=== PATIENT | male | born 1965 | race Two or more races ===

== ENCOUNTER 2019-01-04 16:28 | Inpatient (IN) | payer MEDICAID ==
[~2019-01-04] VITALS: Ht 190.5 cm; Wt 79.4 kg
[2019-01-04 16:33] VITALS: BP 103/55
--- NOTE | 2019-01-04 16:33 | NUR ---
ED Nurse Note: Pt presents to ED with flu like symptoms and N/V with diarrhea x 3 days. Pt states he has not been able to eat x 3 days and is very hungry at this time. Noted one skin wound on left hand. Pt states its an infection. Pt is AAO x4, ambulatory with unlabored breathing. Skin is pale and hot to touch.
--- NOTE | 2019-01-04 16:40 | NUR ---
ED Nurse Note: Dr Raya at the bed side.
[2019-01-04] MEDS ORDERED: Ipratropium 0.02% Inh Soln 2.5ml UD HHN ONE (16:45)
[2019-01-04] MEDS ORDERED: Albuterol ud Inhalation HHN ONE (16:45)
--- NOTE | 2019-01-04 17:00 | NUR ---
ED Nurse Note: Blood and flu swab collected and sent.
--- NOTE | 2019-01-04 17:18 | NUR ---
ED Nurse Note: Called RT for breathing treatment.
--- NOTE | 2019-01-04 17:19 | Emergency Room Report ---
History of Present Illness General Chief Complaint: Flu Like Symptoms Source: Patient Present Illness HPI Patient presents with several days of nausea vomiting and diarrhea. He's been unable to keep down oral fluids for several days. He's complaining about cough wheezing and chest pain also. He says that there is yellow phlegm but not very much. He is a smoker and also drinks alcohol but but denies doing any drugs. He says the diarrhea is watery but not any blood. He denies vomiting any coffee grounds. He feels hungry at this time. No chest pain, palpitations, dysuria, abdominal pain, depression, visual changes , headache. Allergies: Coded Allergies: PENICILLINS (Verified Allergy, Unknown, 01/04/19) Patient History Past Medical History: see triage record Social History: Reports: smoking, alcohol use; Denies: drug use Social History Narrative from streets Reviewed Nursing Documentation: PMH: Agreed; PSxH: Agreed Nursing Documentation-PM Past Medical History: No Stated History Review of Systems All Other Systems: negative except mentioned in HPI Physical Exam Vital Signs Date Time Temp Pulse Resp B/P (MAP) Pulse Ox O2 Delivery O2 Flow Rate FiO2 01/04/19 16:23 100.8 125 19 135/63 94 Room Air Sp02 EP Interpretation: reviewed, abnormal - Interpreted as low by me General Appearance: other - dishevelled Head: normocephalic Eyes: bilateral eye normal inspection, bilateral eye PERRL, bilateral eye EOMI ENT: dry mucus membranes Neck: supple Respiratory: chest non-tender, wheezing, expiration Cardiovascular #1: no edema, tachycardia Cardiovascular #2: 2+ radial (R) Gastrointestinal: normal inspection, normal bowel sounds, non tender, no mass, non-distended, scaphoid Genitourinary: no CVA tenderness Musculoskeletal: back normal, gait/station normal, normal range of motion Neurologic: alert, oriented x3, grossly normal Psychiatric: mood/affect normal Skin: normal inspection, warm/dry Medical Decision Making Diagnostic Impression: Primary Impression: Acute renal failure Qualified Codes: N17.9 - Acute kidney failure, unspecified Additional Impressions: Nausea vomiting and diarrhea COPD exacerbation ER Course Patient presents with inability to eat and vomiting and diarrhea for 3 days. I differential includes gastroenteritis, colitis, other infectious enteritis, COPD exacerbation amongst others. Patient will be evaluated with EKG, chest x- ray and labs. His abdomen is benign at this time and CT abdomen is not indicated. Patient appears clinically dehydrated and will receive IV hydration. Also he is breathing treatments. EKG without injury. Chest x-ray with COPD and fracture ribs on the right. These are not acute. Labs with elevated white count. Also there is evidence of acute renal failure. The patient hasn't produced urine. Lactate normal. Patient improved with breathing treatments. He's receiving IV hydration. Consideration for antibiotics however patient appears to have gastroenteritis. The patient needs hospitalization to observe whether his renal failure is improving or not. Admit medical floor Dr. Fermin. The patient has not provided urine in the emergency department. Laboratory Tests Test 01/04/19 17:00 White Blood Count 13.3 K/UL (4.8-10.8) H Red Blood Count 4.53 M/UL (4.70-6.10) L Hemoglobin 13.7 G/DL (14.2-18.0) L Hematocrit 41.0 % (42.0-52.0) L Mean Corpuscular Volume 90 FL (80-99) Mean Corpuscular Hemoglobin 30.3 PG (27.0-31.0) Mean Corpuscular Hemoglobin Concent 33.5 G/DL (32.0-36.0) Red Cell Distribution Width 12.1 % (11.6-14.8) Platelet Count 143 K/UL (150-450) L Mean Platelet Volume 8.3 FL (6.5-10.1) Neutrophils (%) (Auto) 72.8 % (45.0-75.0) Lymphocytes (%) (Auto) 9.3 % (20.0-45.0) L Monocytes (%) (Auto) 16.5 % (1.0-10.0) H Eosinophils (%) (Auto) 0.0 % (0.0-3.0) Basophils (%) (Auto) 1.4 % (0.0-2.0) Prothrombin Time 10.4 SEC (9.30-11.50) Prothrombin Time INR 1.0 (0.9-1.1) PTT 38 SEC (23-33) H Sodium Level 134 MMOL/L (136-145) L Potassium Level 5.3 MMOL/L (3.5-5.1) H Chloride Level 97 MMOL/L (98-107) L Carbon Dioxide Level 25 MMOL/L (21-32) Anion Gap 12 mmol/L (5-15) Blood Urea Nitrogen 33 mg/dL (7-18) H Creatinine 2.1 MG/DL (0.55-1.30) H Estimate Glomerular Filtration Rate 33.5 mL/min (>60) Glucose Level 107 MG/DL (74-106) H Lactic Acid Level 1.00 mmol/L (0.4-2.0) Calcium Level 9.1 MG/DL (8.5-10.1) Magnesium Level 1.7 MG/DL (1.8-2.4) L Total Bilirubin 0.5 MG/DL (0.2-1.0) Aspartate Amino Transferase (AST) 38 U/L (15-37) H Alanine Aminotransferase (ALT) 39 U/L (12-78) Alkaline Phosphatase 103 U/L (46-116) Total Creatine Kinase 171 U/L (26-308) Troponin I 0.000 ng/mL (0.000-0.056) Pro-B-Type Natriuretic Peptide 410 pg/mL (0-125) H Total Protein 8.2 G/DL (6.4-8.2) Albumin 3.6 G/DL (3.4-5.0) Globulin 4.6 g/dL Albumin/Globulin Ratio 0.8 (1.0-2.7) L Lipase 108 U/L (73-393) Serum Alcohol < 3 mg/dL Microbiology Date/Time Source Procedure Growth Status 01/04/19 16:58 Nasal Nares Influenza Types A,B Antigen (MITALI) - Final Complete EKG Diagnostic Results Rate: normal Rhythm: NSR ST Segments: no acute changes Rhythm Strip Diag. Results EP Interpretation: yes Rhythm: NSR, no PVC's, no ectopy Chest X-Ray Diagnostic Results Chest X-Ray Diagnostic Results : Chest X-Ray Ordered: Yes # of Views/Limited/Complete: 1 View Indication: Other EP Interpretation: Yes Interpretation: no consolidation, no effusion, no pneumothorax, other - COPD and old rib fractures Impression: Other Electronically Signed by: Electronically signed by Luis Raya MD Last Vital Signs Date Time Temp Pulse Resp B/P (MAP) Pulse Ox O2 Delivery O2 Flow Rate FiO2 01/05/19 00:00 98.1 76 18 99/64 (76) 96 01/04/19 22:14 Room Air 01/04/19 20:00 21 Status: improved Disposition: ADMITTED INPATIENT Condition: Serious Luis Raya MD Jan 04, 2019 17:19
[2019-01-04 17:30] LABS: BASOPHILS % (AUTO) 1.4 % (0.0-2.0); HEMOGLOBIN 13.7 G/DL (14.2-18.0); LYMPHOCYTES % (AUTO) 9.3 % (20.0-45.0); MEAN CORPUSCULAR VOLUME 90 FL (80-99); MONOCYTES % (AUTO) 16.5 % (1.0-10.0); NEUTROPHILS % (AUTO) 72.8 % (45.0-75.0); PLATELET COUNT 143 K/UL (150-450); RED BLOOD COUNT 4.53 M/UL (4.70-6.10); RED CELL DISTRIBUTION WIDTH 12.1 % (11.6-14.8); WHITE BLOOD COUNT 13.3 K/UL (4.8-10.8)
[2019-01-04 17:31] LABS: ANION GAP 12 mmol/L (5-15); BLOOD UREA NITROGEN 33 mg/dL (7-18); CALCIUM 9.1 MG/DL (8.5-10.1); CARBON DIOXIDE 25 MMOL/L (21-32); CHLORIDE 97 MMOL/L (98-107); CREATININE 2.1 MG/DL (0.55-1.30); POTASSIUM 5.3 MMOL/L (3.5-5.1); SODIUM 134 MMOL/L (136-145)
--- NOTE | 2019-01-04 17:38 | NUR ---
ED Nurse Note: Pt still unable to provide urine sample at this time. Dr Elver cook for pt to eat food and drinks.
[2019-01-04 17:41] LABS: ALANINE AMINOTRANSFERASE 39 U/L (12-78); ALBUMIN 3.6 G/DL (3.4-5.0); ALBUMIN/GLOBULIN RATIO 0.8 (1.0-2.7); ALKALINE PHOSPHATASE 103 U/L (46-116); ASPARTATE AMINO TRANSFERASE 38 U/L (15-37); BILIRUBIN,TOTAL 0.5 MG/DL (0.2-1.0); CREATINE KINASE 171 U/L (26-308)
--- NOTE | 2019-01-04 19:10 | NUR ---
HAND-OFF: Report given to Tyson Dickens RN.
--- NOTE | 2019-01-04 20:00 | NUR ---
TRANSFER TO FLOOR: Patient transferred to Med Surg 321-1 as ordered, per Fermin MD. Report given to HALLEY Whitehead. Belongings list completed with receiving RN.
--- NOTE | 2019-01-04 20:05 | NUR ---
NURSE NOTES: Received report from HALLEY Don in ER for patient at 1950pm. Pt arrived on unit at 1999 with belongings, keeping cox $100 at bedside, pt alert and oriented, able to make need known, call light within reach, requesting food but I informed him that I would have to wait until the orders are in and he verbalized understanding. Bed in lowest position, Vitals 98.7 T, 85/49, 85HR, 92% room air, 18resp. Pt with no signs of pain or signs of distress. Pt admitted with open wound on left hand and he states he has an infection and takes bactrim, will take a picture and upload it.
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
[2019-01-05] VITALS (7 sets, daily range): BP systolic 90–133; BP diastolic 51–76
[2019-01-05] MEDS ORDERED: BACTRIM DS TAB1 EAC1 ORAL (00:16)
[2019-01-05] MEDS ORDERED: IBUPROFEN600 MG ORAL (00:16)
[2019-01-05] MEDS ORDERED: PROVENTIL HFA6.7 G1 IH (00:16)
--- NOTE | 2019-01-05 01:54 | NUR ---
NURSE NOTES: Pulled tylenol from the pyxis to give to pt for pain but he says it makes him sick. I will put it back in pyxis. he is requesting something for nausea, I will give zofran.
--- NOTE | 2019-01-05 05:00 | NUR ---
NURSE NOTES: I asked the patient multiple times about assisting him to wash up and get cleaned but he states he doesn't want to do it now and will do it later. Encouraged him upon admission that I would help him get cleaned at that time he acknowledged that he wanted to.
[2019-01-05 06:34] LABS: APPEARANCE,URINE CLEAR; BILIRUBIN, URINE NEGATIVE (NEGATIVE); COLOR,URINE PALE YELLOW; GLUCOSE, URINE (UA) NEGATIVE (NEGATIVE); KETONES,URINE NEGATIVE (NEGATIVE); LEUKOCYTE ESTERASE ,URINE NEGATIVE (NEGATIVE); NITRITE,URINE NEGATIVE (NEGATIVE); PH,URINE 5 (4.5-8.0); PROTEIN,URINE 1+ (NEGATIVE); UROBILINOGEN,URINE NORMAL MG/DL (0.0-1.0)
--- NOTE | 2019-01-05 06:39 | NUR ---
NURSE NOTES: Hanley catheter 16F in place and urine draining, total output this morning 1600ml.
[2019-01-05 06:53] LABS: BASOPHILS % (AUTO) 1.3 % (0.0-2.0); HEMATOCRIT 34.5 % (42.0-52.0); HEMOGLOBIN 11.6 G/DL (14.2-18.0); LYMPHOCYTES % (AUTO) 11.7 % (20.0-45.0); MEAN CORPUSCULAR VOLUME 90 FL (80-99); MONOCYTES % (AUTO) 13.8 % (1.0-10.0); NEUTROPHILS % (AUTO) 73.2 % (45.0-75.0); PLATELET COUNT 109 K/UL (150-450); RED BLOOD COUNT 3.83 M/UL (4.70-6.10); RED CELL DISTRIBUTION WIDTH 11.7 % (11.6-14.8); WHITE BLOOD COUNT 8.6 K/UL (4.8-10.8)
--- NOTE | 2019-01-05 07:09 | NUR ---
NURSE NOTES: Micro called stating pt urine positive for amphetamines
[2019-01-05 07:20] LABS: ANION GAP 8 mmol/L (5-15); BLOOD UREA NITROGEN 28 mg/dL (7-18); CALCIUM 8.1 MG/DL (8.5-10.1); CARBON DIOXIDE 24 MMOL/L (21-32); CHLORIDE 100 MMOL/L (98-107); CREATININE 1.6 MG/DL (0.55-1.30); SODIUM 132 MMOL/L (136-145)
--- NOTE | 2019-01-05 07:42 | NUR ---
HAND-OFF: Report given to HALLEY Powell.
--- NOTE | 2019-01-05 10:01 | NUR ---
CASE MANAGEMENT:REVIEW 53 YR OLD MALE BIBA CC; FLU LIKE SYMPTOMS WITH NAUSEA AND DIARRHEA; GENERALIZED PAIN SI: ACUTE RENAL FAILURE. COPD EXACERBATION N/V/D 100.8 125 19 135/63 94% ON RA WBC+13.3 IS: DUONEB HHN IBUPROFEN PO 1L NS BOLUS IV ZOFRAN CHEST XRAY : TO TELEMETRY *INTERQUAL CRITERIA MET
--- NOTE | 2019-01-05 10:09 | Nephrology Progress Note ---
Assessment/Plan Assessment/Plan A/P 1) BOBBY- due to volume depletion/prerenal. High urine OSM - Cr down to 1.6. Continue IVFs and DC benitez 2) Substance Abuse- meth 3) Sepsis- + Influ A and hand infection - Tamiflu/resp isolation + Bactrim - ID consulted 4) Dehydration- IVFs 5) N/V - per GI mgmt Subjective Date patient seen: Jan 05, 2019 Time patient seen: 10:06 ROS Limited/Unobtainable: No Constitutional: Reports: fever, weakness Endocrine: Reports: excessive sweating, intolerance to heat Allergies: Coded Allergies: PENICILLINS (Verified Allergy, Unknown, 01/04/19) All Systems: reviewed and negative except above Subjective Patient having fevers Objective Last 24 Hour Vital Signs Date Time Temp Pulse Resp B/P (MAP) Pulse Ox O2 Delivery O2 Flow Rate FiO2 01/05/19 08:00 102.5 100 16 121/76 (91) 94 01/05/19 04:00 99.9 91 18 113/65 (81) 95 01/05/19 00:00 98.1 76 18 99/64 (76) 96 01/04/19 22:14 Room Air 01/04/19 20:00 100.9 107 20 103/55 99 Room Air 21 01/04/19 17:38 92 20 99 Room Air 21 01/04/19 17:33 100.9 01/04/19 17:30 86 22 Room Air 21 01/04/19 17:30 21 01/04/19 17:30 86 22 97 Room Air 21 01/04/19 16:33 107 18 Room Air 01/04/19 16:33 100.8 107 18 103/55 94 Room Air 01/04/19 16:23 100.8 125 19 135/63 94 Room Air Intake and Output 01/04/19 01/05/19 19:00 07:00 Intake Total 1000 ml 1420 ml Output Total 1600 ml Balance 1000 ml -180 ml Intake Oral 1420 ml IV Total 1000 ml Output Urine Total 1600 ml # Bowel Movements 3 Laboratory Tests 01/04/19 17:00: White Blood Count 13.3H, Red Blood Count 4.53L, Hemoglobin 13.7L, Hematocrit 41.0L, Mean Corpuscular Volume 90, Mean Corpuscular Hemoglobin 30.3, Mean Corpuscular Hemoglobin Concent 33.5, Red Cell Distribution Width 12.1, Platelet Count 143L, Mean Platelet Volume 8.3, Neutrophils (%) (Auto) 72.8, Lymphocytes ( %) (Auto) 9.3L, Monocytes (%) (Auto) 16.5H, Eosinophils (%) (Auto) 0.0, Basophils (%) (Auto) 1.4, Prothrombin Time 10.4, Prothromb Time International Ratio 1.0, Activated Partial Thromboplast Time 38H, Sodium Level 134L, Potassium Level 5.3H, Chloride Level 97L, Carbon Dioxide Level 25, Anion Gap 12 , Blood Urea Nitrogen 33H, Creatinine 2.1H, Estimat Glomerular Filtration Rate 33.5, Glucose Level 107H, Lactic Acid Level 1.00, Calcium Level 9.1, Magnesium Level 1.7L, Total Bilirubin 0.5, Aspartate Amino Transf (AST/SGOT) 38H, Alanine Aminotransferase (ALT/SGPT) 39, Alkaline Phosphatase 103, Total Creatine Kinase 171, Troponin I 0.000, Pro-B-Type Natriuretic Peptide 410H, Total Protein 8.2, Albumin 3.6, Globulin 4.6, Albumin/Globulin Ratio 0.8L, Lipase 108, Serum Alcohol < 3 01/05/19 04:50: Urine Color Pale yellow, Urine Appearance Clear, Urine pH 5, Urine Specific [place] 1.015, Urine Protein 1+H, Urine Glucose (UA) Negative, Urine Ketones Negative, Urine Blood 5+H, Urine Nitrite Negative, Urine Bilirubin Negative, Urine Urobilinogen Normal, Urine Leukocyte Esterase Negative, Urine RBC 10-15H, Urine WBC 0-2, Urine Squamous Epithelial Cells Occasional, Urine Bacteria Occasional, Urine Osmolality 506H, Urine Random Sodium 95, Urine Creatinine 62.9 , Urine Opiates Screen Negative, Urine Barbiturates Screen Negative, Phencyclidine (PCP) Screen Negative, Urine Amphetamines Screen PositiveH, Urine Benzodiazepines Screen Negative, Urine Cocaine Screen Negative, Urine Marijuana (THC) Screen Negative 01/05/19 06:00: White Blood Count 8.6, Red Blood Count 3.83L, Hemoglobin 11.6L, Hematocrit 34.5L , Mean Corpuscular Volume 90, Mean Corpuscular Hemoglobin 30.2, Mean Corpuscular Hemoglobin Concent 33.6, Red Cell Distribution Width 11.7, Platelet Count 109L, Mean Platelet Volume 9.6, Neutrophils (%) (Auto) 73.2, Lymphocytes ( %) (Auto) 11.7L, Monocytes (%) (Auto) 13.8H, Eosinophils (%) (Auto) 0.0, Basophils (%) (Auto) 1.3, Sodium Level 132L, Potassium Level 5.0, Chloride Level 100, Carbon Dioxide Level 24, Anion Gap 8, Blood Urea Nitrogen 28H, Creatinine 1.6H, Estimat Glomerular Filtration Rate 45.8, Glucose Level 97, Calcium Level 8.1L, Phosphorus Level 2.1L Height (Feet): 6 Height (Inches): 3.00 Weight (Pounds): 175 General Appearance: alert, mild distress EENT: normal ENT inspection Neck: normal alignment, supple Cardiovascular: normal rate, regular rhythm Respiratory/Chest: lungs clear, normal breath sounds Abdomen: non tender, soft Edema: no edema noted Arm (L), no edema noted Arm (R), no edema noted Leg (L), no edema noted Leg (R), no edema noted Pedal (L), no edema noted Pedal (R), no edema noted Generalized Rafael Fermin MD Jan 05, 2019 10:09
--- NOTE | 2019-01-05 10:11 | Diagnostic Imaging Report ---
Indication: Dyspnea Comparison: None A single view chest radiograph was obtained. Findings: Cardiomediastinal appearance is within normal limits for age. The lungs are clear. Pulmonary vascularity is appropriate. The diaphragmatic contour is smooth and costophrenic angles are sharp. No pleural effusions are identified. The bones are unremarkable. Impression: No acute findings
[2019-01-05] MEDS: Oseltamivir 75mg cap ORAL SCH ×2 (11:06→17:19)
[2019-01-05] MEDS: Bactrim-DS 1 tab ORAL SCH ×2 (11:07→17:18)
--- NOTE | 2019-01-05 11:58 | GI Initial Consult Note ---
History of Present Illness General Date patient seen: Jan 05, 2019 Time patient seen: 11:54 Reason for Hospitalization: Flu Like Symptoms Referring physician: STOVALL Reason for Consultation: Nausea vomiting Present Illness HPI Patient presents with several days of nausea vomiting and diarrhea. He's been unable to keep down oral fluids for several days. He's complaining about cough wheezing and chest pain also. He says that there is yellow phlegm but not very much. He is a smoker and also drinks alcohol but but denies doing any drugs. He says the diarrhea is watery but not any blood. He denies vomiting any coffee grounds. He feels hungry at this time. No chest pain, palpitations, dysuria, abdominal pain, depression, visual changes , headache. GI consulted for nausea and vomiting. Patient seen, awake alert and oriented x4 has complaint of poor p.o. intake. Stated that he had days of nausea vomiting and diarrhea. Patient currently on droplet precautions for influenza. Laboratory values reviewed; patient presents with normocytic anemia, phosphorus of 2.1, sodium of 132. Urine toxicity positive for amphetamines. Patient denies any history of endoscopic or colonoscopy. Home Meds Reported Medications Trimethoprim/Sulfamethoxazole 160/800* (BACTRIM DS TABLET*) 1 Each Tablet, 1 TAB ORAL TWICE A DAY, TAB 01/05/19 Albuterol Sulfate (PROVENTIL HFA) 6.7 Gm Hfa.aer.ad, 6.7 GM IH 01/05/19 Ibuprofen* (MOTRIN*) 600 Mg Tablet, 600 MG ORAL Q8H PRN for For Pain, #30 TAB 0 Refills 01/05/19 Allergies: Coded Allergies: PENICILLINS (Verified Allergy, Unknown, 01/04/19) Patient History History Provided By: Patient, Medical Record PMH Narrative Past Medical History: see triage record Social History: Reports: smoking, alcohol use; Denies: drug use Social History Narrative from streets Reviewed Nursing Documentation: PMH: Agreed; PSxH: Agreed Nursing Documentation-PM Past Medical History: No Stated History Social History: Reports: drug use Review of Systems All Other Systems: negative except mentioned in HPI Physical Exam Vital Signs Date Time Temp Pulse Resp B/P (MAP) Pulse Ox O2 Delivery O2 Flow Rate FiO2 01/04/19 16:23 100.8 125 19 135/63 94 Room Air 2/24/19 17:30 21 Sp02 EP Interpretation: reviewed, normal Labs Laboratory Tests Test 01/04/19 17:00 01/05/19 04:50 01/05/19 06:00 White Blood Count 13.3 K/UL (4.8-10.8) H 8.6 K/UL (4.8-10.8) Red Blood Count 4.53 M/UL (4.70-6.10) L 3.83 M/UL (4.70-6.10) L Hemoglobin 13.7 G/DL (14.2-18.0) L 11.6 G/DL (14.2-18.0) L Hematocrit 41.0 % (42.0-52.0) L 34.5 % (42.0-52.0) L Mean Corpuscular Volume 90 FL (80-99) 90 FL (80-99) Mean Corpuscular Hemoglobin 30.3 PG (27.0-31.0) 30.2 PG (27.0-31.0) Mean Corpuscular Hemoglobin Concent 33.5 G/DL (32.0-36.0) 33.6 G/DL (32.0-36.0) Red Cell Distribution Width 12.1 % (11.6-14.8) 11.7 % (11.6-14.8) Platelet Count 143 K/UL (150-450) L 109 K/UL (150-450) L Mean Platelet Volume 8.3 FL (6.5-10.1) 9.6 FL (6.5-10.1) Neutrophils (%) (Auto) 72.8 % (45.0-75.0) 73.2 % (45.0-75.0) Lymphocytes (%) (Auto) 9.3 % (20.0-45.0) L 11.7 % (20.0-45.0) L Monocytes (%) (Auto) 16.5 % (1.0-10.0) H 13.8 % (1.0-10.0) H Eosinophils (%) (Auto) 0.0 % (0.0-3.0) 0.0 % (0.0-3.0) Basophils (%) (Auto) 1.4 % (0.0-2.0) 1.3 % (0.0-2.0) Prothrombin Time 10.4 SEC (9.30-11.50) Prothromb Time International Ratio 1.0 (0.9-1.1) Activated Partial Thromboplast Time 38 SEC (23-33) H Sodium Level 134 MMOL/L (136-145) L 132 MMOL/L (136-145) L Potassium Level 5.3 MMOL/L (3.5-5.1) H 5.0 MMOL/L (3.5-5.1) Chloride Level 97 MMOL/L (98-107) L 100 MMOL/L (98-107) Carbon Dioxide Level 25 MMOL/L (21-32) 24 MMOL/L (21-32) Anion Gap 12 mmol/L (5-15) 8 mmol/L (5-15) Blood Urea Nitrogen 33 mg/dL (7-18) H 28 mg/dL (7-18) H Creatinine 2.1 MG/DL (0.55-1.30) H 1.6 MG/DL (0.55-1.30) H Estimat Glomerular Filtration Rate 33.5 mL/min (>60) 45.8 mL/min (>60) Glucose Level 107 MG/DL (74-106) H 97 MG/DL (74-106) Lactic Acid Level 1.00 mmol/L (0.4-2.0) Calcium Level 9.1 MG/DL (8.5-10.1) 8.1 MG/DL (8.5-10.1) L Magnesium Level 1.7 MG/DL (1.8-2.4) L Total Bilirubin 0.5 MG/DL (0.2-1.0) Aspartate Amino Transf (AST/SGOT) 38 U/L (15-37) H Alanine Aminotransferase (ALT/SGPT) 39 U/L (12-78) Alkaline Phosphatase 103 U/L (46-116) Total Creatine Kinase 171 U/L (26-308) Troponin I 0.000 ng/mL (0.000-0.056) Pro-B-Type Natriuretic Peptide 410 pg/mL (0-125) H Total Protein 8.2 G/DL (6.4-8.2) Albumin 3.6 G/DL (3.4-5.0) Globulin 4.6 g/dL Albumin/Globulin Ratio 0.8 (1.0-2.7) L Lipase 108 U/L (73-393) Serum Alcohol < 3 mg/dL Urine Color Pale yellow Urine Appearance Clear Urine pH 5 (4.5-8.0) Urine Specific [place] 1.015 (1.005-1.035) Urine Protein 1+ (NEGATIVE) H Urine Glucose (UA) Negative (NEGATIVE) Urine Ketones Negative (NEGATIVE) Urine Blood 5+ (NEGATIVE) H Urine Nitrite Negative (NEGATIVE) Urine Bilirubin Negative (NEGATIVE) Urine Urobilinogen Normal MG/DL (0.0-1.0) Urine Leukocyte Esterase Negative (NEGATIVE) Urine RBC 10-15 /HPF (0 - 0) H Urine WBC 0-2 /HPF (0 - 0) Urine Squamous Epithelial Cells Occasional /LPF Urine Bacteria Occasional /HPF (NONE) Urine Osmolality 506 mOsm/kg (429-449) H Urine Random Sodium 95 mmol/L (20-110) Urine Creatinine 62.9 MG/DL (30.0-125.0) Urine Opiates Screen Negative (NEGATIVE) Urine Barbiturates Screen Negative (NEGATIVE) Phencyclidine (PCP) Screen Negative (NEGATIVE) Urine Amphetamines Screen Positive (NEGATIVE) H Urine Benzodiazepines Screen Negative (NEGATIVE) Urine Cocaine Screen Negative (NEGATIVE) Urine Marijuana (THC) Screen Negative (NEGATIVE) Phosphorus Level 2.1 MG/DL (2.5-4.9) L General Appearance: well appearing, no apparent distress, alert Head: normocephalic EENT: PERRL/EOMI, normal ENT inspection Neck: supple Respiratory: normal breath sounds, no respiratory distress Cardiovascular: normal rate Gastrointestinal: normal inspection, non tender, soft, normal bowel sounds, non -distended Rectal: deferred Genitourinary: deferred Musculoskeletal: normal inspection, back normal Neurologic: normal inspection, alert, oriented x3, responsive Psychiatric: normal inspection, judgement/insight normal, memory normal Skin: normal inspection, normal color, no rash, warm/dry, palpation normal, well hydrated Lymphatic: normal inspection, no adenopathy Current Medications Current Medications Medications (Trade) Dose Ordered Sig/Steve Route PRN Reason Start Time Stop Time Status Last Admin Dose Admin Acetaminophen (Tylenol) 650 mg Q4H PRN ORAL Mild Pain/Temp > 100.5 01/05/19 10:00 02/04/19 09:59 01/05/19 11:14 Dextrose (Dextrose 50%) 25 ml Q30M PRN IV Hypoglycemia 01/04/19 19:15 02/03/19 19:14 Dextrose (Dextrose 50%) 50 ml Q30M PRN IV Hypoglycemia 01/04/19 19:15 02/03/19 19:14 Diphenhydramine HCl (Benadryl) 25 mg Q6H PRN ORAL Itching/Pruritis 01/04/19 19:15 02/03/19 19:14 Famotidine (Pepcid) 40 mg DAILY ORAL 01/05/19 09:00 02/04/19 08:59 01/05/19 09:43 Ondansetron HCl (Zofran) 4 mg Q6H PRN IVP Nausea & Vomiting 01/04/19 19:15 02/03/19 19:14 01/05/19 09:51 Oseltamivir Phosphate (Tamiflu) 75 mg TWICE A DAY ORAL 01/05/19 10:00 01/10/19 09:59 01/05/19 11:06 Sodium Chloride 1,000 ml @ 100 mls/hr Q10H IV 01/04/19 20:00 02/03/19 19:59 01/05/19 08:40 Trimethoprim/ Sulfamethoxazole (Bactrim-DS) 1 tab TWICE A DAY ORAL 01/05/19 10:00 01/12/19 09:59 01/05/19 11:07 GI: Plan Problems: (1) Acute renal failure (2) Nausea vomiting and diarrhea (3) Dehydration (4) Anemia (5) Electrolyte imbalance Plan Urine toxicity positive for amphetamines Nasal culture positive for influenza A Antibiotics per ID Advance diet as tolerated Zofran as needed IV hydration plus electrolyte correction anemia work up OB stool r/o GI bleed monitor H&H, prn transfusions bowel regime ppi fu labs Outpatient GI procedures Discussed with Dr. Raines. Thank you for this patient referral, we will follow. The patient was seen and examined at bedside and all new and available data was reviewed in the patients chart. I agree with the above findings, impression and plan. (Patient seen earlier today. Signature stamp does not reflect patient encounter time.). - MD Carolyn Abebe,[facility] [employer] Jan 05, 2019 11:58
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
--- NOTE | 2019-01-05 15:00 | NUR ---
NURSE NOTES: transferred pt to , room 417-1, report given to RN Afnaheed. Patient in stable condition and VVSS, no complaint of pain of discomfort. Belongings list checked by transferring and receiving RNs, in front of patient. Pt changed his mind and wants to leave cox to be stored at the safe. Notified 4E CN.
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
--- NOTE | 2019-01-05 16:04 | NUR ---
*-* INSURANCE *--* ALL CLINICALS AND REVIEWS HAVE BEEN FAXED TO: [employer] ALO:MAHAD P:[phone] F:[phone]
--- NOTE | 2019-01-05 16:51 | Cardiology Report ---
APPROVED REPORT EKG Measurement Heart [id number] Normal sinus rhythm Normal ECG
--- NOTE | 2019-01-05 19:18 | NUR ---
HAND-OFF: Report given to HALLEY MCWILLIAMS.
--- NOTE | 2019-01-05 20:28 | NUR ---
NURSE NOTES: Received patient awake,alert,verbal,febrile,T-102.4.Tylenol 650 mg given as prn meds.Stool also collected and sent to laboratory for Stool OB and C-diff.
[2019-01-06 04:00] VITALS: BP 108/67
--- NOTE | 2019-01-06 07:30 | NUR ---
HAND-OFF: Report given to Tyrone Yang RN.
--- NOTE | 2019-01-06 07:32 | NUR ---
NURSE NOTES: Received patient from Melly RN, patient is resting in bed, no distress noted, bed is locked and in lowest position, call light within reach, will continue to monitor.
[2019-01-06 07:40] LABS: BASOPHILS % (AUTO) 0.5 % (0.0-2.0); EOSINOPHILS % (AUTO) 0.1 % (0.0-3.0); HEMATOCRIT 33.8 % (42.0-52.0); HEMOGLOBIN 11.4 G/DL (14.2-18.0); LYMPHOCYTES % (AUTO) 17.4 % (20.0-45.0); MEAN CORPUSCULAR VOLUME 91 FL (80-99); MONOCYTES % (AUTO) 10.6 % (1.0-10.0); NEUTROPHILS % (AUTO) 71.4 % (45.0-75.0); PLATELET COUNT 100 K/UL (150-450); RED BLOOD COUNT 3.72 M/UL (4.70-6.10); RED CELL DISTRIBUTION WIDTH 11.4 % (11.6-14.8); WHITE BLOOD COUNT 7.6 K/UL (4.8-10.8)
[2019-01-06 07:54] LABS: ANION GAP 8 mmol/L (5-15); BLOOD UREA NITROGEN 24 mg/dL (7-18); CALCIUM 8.2 MG/DL (8.5-10.1); CARBON DIOXIDE 25 MMOL/L (21-32); CHLORIDE 100 MMOL/L (98-107); CREATININE 1.5 MG/DL (0.55-1.30); FERRITIN 363 NG/ML (8-388); POTASSIUM 4.6 MMOL/L (3.5-5.1); SODIUM 133 MMOL/L (136-145)
[2019-01-06 07:55] LABS: % IRON SATURATION 7 % (15-50); IRON 14 ug/dL (50-175); TOTAL IRON BINDING CAPACITY 197 ug/dL (250-450)
[2019-01-06 08:00] VITALS: BP 104/67
[2019-01-06] MEDS: Oseltamivir 75mg cap ORAL SCH ×2 (08:40→18:16)
[2019-01-06] MEDS: Bactrim-DS 1 tab ORAL SCH ×2 (08:40→18:17)
--- NOTE | 2019-01-06 10:59 | Nephrology Progress Note ---
Assessment/Plan Assessment/Plan A/P 1) BOBBY- due to volume depletion/prerenal. High urine OSM - Improved. Cr 1.5. DC IVFs as patient now eating and drinking 2) Substance Abuse- meth 3) Sepsis- + Influ A and hand infection - Tamiflu/resp isolation + Bactrim - wound care per Gen surg 4) Dehydration- IVFs stopped. Resolved 5) N/V - per GI mgmt. resolved Plan is to DC patient once he has defervesced for 24 hrs Subjective Date patient seen: Jan 06, 2019 Time patient seen: 10:55 ROS Limited/Unobtainable: No Allergies: Coded Allergies: PENICILLINS (Verified Allergy, Unknown, 01/04/19) All Systems: reviewed and negative except above Subjective Patient fevers have resolved. N/V improved and BMs better formed Objective Last 24 Hour Vital Signs Date Time Temp Pulse Resp B/P (MAP) Pulse Ox O2 Delivery O2 Flow Rate FiO2 01/06/19 08:15 Room Air 01/06/19 08:00 98.2 81 20 104/67 (79) 99 01/06/19 04:00 99.3 81 18 108/67 (81) 98 01/05/19 21:00 Room Air 01/05/19 20:58 100.0 01/05/19 20:00 102.4 95 18 128/74 (92) 94 01/05/19 17:00 106/61 (76) 01/05/19 15:30 98.9 79 19 90/51 (64) 95 01/05/19 12:00 99.9 92 16 133/73 (93) 96 Intake and Output 01/05/19 01/06/19 19:00 07:00 Intake Total 760 ml 1200 ml Balance 760 ml 1200 ml Intake Oral 360 ml IV Total 400 ml 1200 ml Laboratory Tests 01/05/19 20:00: Stool Occult Blood Negative 01/06/19 05:10: White Blood Count 7.6, Red Blood Count 3.72L, Hemoglobin 11.4L, Hematocrit 33.8L , Mean Corpuscular Volume 91, Mean Corpuscular Hemoglobin 30.5, Mean Corpuscular Hemoglobin Concent 33.6, Red Cell Distribution Width 11.4L, Platelet Count 100L, Mean Platelet Volume 9.1, Neutrophils (%) (Auto) 71.4, Lymphocytes (%) (Auto) 17.4L, Monocytes (%) (Auto) 10.6H, Eosinophils (%) (Auto ) 0.1, Basophils (%) (Auto) 0.5, Reticulocyte Count [Pending], Prothrombin Time 10.4, Prothromb Time International Ratio 1.0, Activated Partial Thromboplast Time 38H, Sodium Level 133L, Potassium Level 4.6, Chloride Level 100, Carbon Dioxide Level 25, Anion Gap 8, Blood Urea Nitrogen 24H, Creatinine 1.5H, Estimat Glomerular Filtration Rate 49.3, Glucose Level 88, Calcium Level 8.2L, Iron Level 14L, Total Iron Binding Capacity 197L, Percent Iron Saturation 7L, Unsaturated Iron Binding 183, Ferritin 363, Carcinoembryonic Antigen [Pending], Vitamin B12 Level 425, Folate 10.8, Thyroid Stimulating Hormone (TSH) 5.405H, Free Thyroxine 1.12 Height (Feet): 6 Height (Inches): 3.00 Weight (Pounds): 175 General Appearance: no apparent distress, alert EENT: normal ENT inspection Neck: normal alignment, supple Cardiovascular: normal rate, regular rhythm Respiratory/Chest: lungs clear, normal breath sounds Abdomen: non tender, soft Edema: no edema noted Arm (L), no edema noted Arm (R), no edema noted Leg (L), no edema noted Leg (R), no edema noted Pedal (L), no edema noted Pedal (R), no edema noted Generalized Rafael Fermin MD Jan 06, 2019 10:59
[2019-01-06] MEDS ORDERED: Sodium Phosphate 30 MM in NS 275 ML IVPB ONE (11:00)
[2019-01-06] MEDS ORDERED: Iron Sucrose 100 MG in NS 55 ML IV ONE (11:00)
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
[2019-01-06 12:00] VITALS: BP 115/66
--- NOTE | 2019-01-06 13:44 | NUR ---
Social Service Note SW met with patient to assess for homelessness. Patient is alert, oriented and verbally responsive. Patient states he has been homeless for greater then 30 years. Patient cannot provide contributing factors as to what contributed to his homelessness or steps he has taken to obtain housing. Patient states he has a friend in which is assisting him in obtaining SSI benefits. Patient states he is able to return to his friend's house upon discharge. Patient declined to provided SW friend's contact information or an emergency contact. Patient states he doesn't utilize shelters and if not staying with friends he prefers to stay on the streets. Patient states he was diagnosed with Mental Health disorder, Bipolar. Patient is not being seen for mental services and is not on medication. Patient receptive to community resources for mental health support. Patient was unaware that he has an assigned medical provider. Patient's medical provider is [place] [phone], . JACQUELINE unable to arrange follow up appointment due to patient never receiving medical intervention in this clinic. Per Nabeel at the clinic patient can walk in Saturday- at 9am, 1040am, and 240pm to be established as a patient. Clinic is requesting medical records to be faxed to [phone] upon discharge. Clinic information and mental health follow up will be provided to patient upon discharge. Patient indicated requiring transportation to patient designated location upon discharge. Homeless patient discharge planning checklist and resources placed in patient's chart.
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
--- NOTE | 2019-01-06 14:20 | NUR ---
RADIOLOGY DEPT CHEST X-RAY DONE.-P.DYE
--- NOTE | 2019-01-06 14:31 | NUR ---
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 98.3 HR 65 RR 20 B/P 115/66 RA O2 SAT 99% PLT 100 BUN 24 CR 1.5 TSH 5.405 IS: K PHOS IV BACTRIM PO TAMIFLU PO MED/SURG STATUS
--- NOTE | 2019-01-06 15:47 | Diagnostic Imaging Report ---
Indication: Cough Technique: One view of the chest Comparison: 01/04/2019 Findings: Right hilar prominence is again demonstrated. No definite acute infiltrates, effusions, or congestion. The heart size is normal Impression: No acute process
[2019-01-06 16:00] VITALS: BP 99/66
--- NOTE | 2019-01-06 18:56 | General Progress Note ---
Assessment/Plan Assessment/Plan GI: Plan Problems: (1) Acute renal failure (2) Nausea vomiting and diarrhea - improved (3) Dehydration (4) Anemia (5) Electrolyte imbalance (6) Influenza Plans Antibiotics per ID Advance diet as tolerated Zofran as needed IV hydration plus electrolyte correction anemia work up OB stool r/o GI bleed monitor H&H, prn transfusions bowel regime ppi fu labs Outpatient screening colonoscopy Subjective Allergies: Coded Allergies: PENICILLINS (Verified Allergy, Unknown, 01/04/19) Subjective Feels much better no N/V tolerating PO Objective Last 24 Hour Vital Signs Date Time Temp Pulse Resp B/P (MAP) Pulse Ox O2 Delivery O2 Flow Rate FiO2 01/06/19 16:00 98.1 70 20 99/66 (77) 94 01/06/19 12:00 98.3 65 20 115/66 (82) 99 01/06/19 08:15 Room Air 01/06/19 08:00 98.2 81 20 104/67 (79) 99 01/06/19 04:00 99.3 81 18 108/67 (81) 98 01/05/19 21:00 Room Air 01/05/19 20:58 100.0 01/05/19 20:00 102.4 95 18 128/74 (92) 94 Intake and Output 01/05/19 01/06/19 18:59 06:59 Intake Total 660 ml 1200 ml Balance 660 ml 1200 ml Intake Oral 360 ml IV Total 300 ml 1200 ml Laboratory Tests 01/05/19 20:00: Stool Occult Blood Negative 01/06/19 05:10: White Blood Count 7.6, Red Blood Count 3.72L, Hemoglobin 11.4L, Hematocrit 33.8L , Mean Corpuscular Volume 91, Mean Corpuscular Hemoglobin 30.5, Mean Corpuscular Hemoglobin Concent 33.6, Red Cell Distribution Width 11.4L, Platelet Count 100L, Mean Platelet Volume 9.1, Neutrophils (%) (Auto) 71.4, Lymphocytes (%) (Auto) 17.4L, Monocytes (%) (Auto) 10.6H, Eosinophils (%) (Auto ) 0.1, Basophils (%) (Auto) 0.5, Reticulocyte Count 0.5, Prothrombin Time 10.4, Prothromb Time International Ratio 1.0, Activated Partial Thromboplast Time 38H , Sodium Level 133L, Potassium Level 4.6, Chloride Level 100, Carbon Dioxide Level 25, Anion Gap 8, Blood Urea Nitrogen 24H, Creatinine 1.5H, Estimat Glomerular Filtration Rate 49.3, Glucose Level 88, Calcium Level 8.2L, Iron Level 14L, Total Iron Binding Capacity 197L, Percent Iron Saturation 7L, Unsaturated Iron Binding 183, Ferritin 363, Carcinoembryonic Antigen [Pending], Vitamin B12 Level 425, Folate 10.8, Thyroid Stimulating Hormone (TSH) 5.405H, Free Thyroxine 1.12 Height (Feet): 6 Height (Inches): 3.00 Weight (Pounds): 175 Objective WDWN NCAT supple CTA RRR abd soft ND no edema nonfocal Mikey Scanlon MD Jan 06, 2019 18:56
--- NOTE | 2019-01-06 19:24 | NUR ---
HAND-OFF: Report given to Melly ROWLEY.
--- NOTE | 2019-01-06 19:49 | NUR ---
NURSE NOTES: Received patient awake,alert,verbal,resting in bed,comfortable.
[2019-01-06 20:00] VITALS: BP 103/61
[2019-01-06] MEDS ORDERED: Tubing IV Secondary IV ONE (22:25)
[2019-01-07 04:00] VITALS: BP 112/70
[2019-01-07 07:05] LABS: BASOPHILS % (AUTO) 0.8 % (0.0-2.0); HEMATOCRIT 34.8 % (42.0-52.0); HEMOGLOBIN 11.6 G/DL (14.2-18.0); LYMPHOCYTES % (AUTO) 31.7 % (20.0-45.0); MEAN CORPUSCULAR VOLUME 91 FL (80-99); MONOCYTES % (AUTO) 12.7 % (1.0-10.0); NEUTROPHILS % (AUTO) 53.8 % (45.0-75.0); PLATELET COUNT 112 K/UL (150-450); RED BLOOD COUNT 3.82 M/UL (4.70-6.10); RED CELL DISTRIBUTION WIDTH 11.6 % (11.6-14.8); WHITE BLOOD COUNT 4.2 K/UL (4.8-10.8)
[2019-01-07 07:21] LABS: ANION GAP 9 mmol/L (5-15); BLOOD UREA NITROGEN 25 mg/dL (7-18); CALCIUM 8.7 MG/DL (8.5-10.1); CARBON DIOXIDE 26 MMOL/L (21-32); CHLORIDE 103 MMOL/L (98-107); CREATININE 1.5 MG/DL (0.55-1.30); POTASSIUM 4.9 MMOL/L (3.5-5.1); SODIUM 138 MMOL/L (136-145)
--- NOTE | 2019-01-07 07:23 | NUR ---
HAND-OFF: Report given to Sergio Egan RN.
--- NOTE | 2019-01-07 07:24 | NUR ---
received report from HALLEY Farooq. patient in bed. alert, verbally responsive. no respiratory distress noted. no c/o pain at this time. RAC saline lock intact. bed in the lowest position. alarm on. call light within reach. will continue to monitor.
[2019-01-07 08:00] VITALS: BP 98/61
--- NOTE | 2019-01-07 08:19 | General Progress Note ---
Assessment/Plan Status: doing well, tolerating diet Assessment/Plan 1) BOBBY- due to volume depletion/prerenal. High urine OSM - Improved. Cr 1.5. patient now eating and drinking 2) Substance Abuse- meth 3) Sepsis- + Influ A and hand infection - Tamiflu/resp isolation + Bactrim - wound care per Gen surg DC home Subjective Date patient seen: Jan 07, 2019 ROS Limited/Unobtainable: Yes Constitutional: Reports: no symptoms HEENT: Reports: no symptoms Cardiovascular: Reports: no symptoms Respiratory: Reports: no symptoms Gastrointestinal/Abdominal: Reports: no symptoms Genitourinary: Reports: no symptoms Neurologic/Psychiatric: Reports: no symptoms Allergies: Coded Allergies: PENICILLINS (Verified Allergy, Unknown, 01/04/19) All Systems: reviewed and negative except above Objective Last 24 Hour Vital Signs Date Time Temp Pulse Resp B/P (MAP) Pulse Ox O2 Delivery O2 Flow Rate FiO2 01/07/19 04:00 97.4 72 16 112/70 (84) 96 01/06/19 21:00 Room Air 01/06/19 20:00 97.8 63 18 103/61 (75) 98 01/06/19 16:00 98.1 70 20 99/66 (77) 94 01/06/19 12:00 98.3 65 20 115/66 (82) 99 Intake and Output 01/06/19 01/07/19 19:00 07:00 Intake Total 480 ml 600 ml Output Total 750 ml Balance -270 ml 600 ml Intake Oral 480 ml 600 ml Output Urine Total 750 ml # Voids 3 Laboratory Tests 01/07/19 05:20: White Blood Count 4.2L, Red Blood Count 3.82L, Hemoglobin 11.6L, Hematocrit 34.8L, Mean Corpuscular Volume 91, Mean Corpuscular Hemoglobin 30.4, Mean Corpuscular Hemoglobin Concent 33.3, Red Cell Distribution Width 11.6, Platelet Count 112L, Mean Platelet Volume 8.3, Neutrophils (%) (Auto) 53.8, Lymphocytes ( %) (Auto) 31.7, Monocytes (%) (Auto) 12.7H, Eosinophils (%) (Auto) 1.0, Basophils (%) (Auto) 0.8, Sodium Level 138, Potassium Level 4.9, Chloride Level 103, Carbon Dioxide Level 26, Anion Gap 9, Blood Urea Nitrogen 25H, Creatinine 1.5H, Estimat Glomerular Filtration Rate 49.3, Glucose Level 91, Calcium Level 8.7 Height (Feet): 6 Height (Inches): 3.00 Weight (Pounds): 175 General Appearance: no apparent distress Neck: non-tender Cardiovascular: normal peripheral pulses, normal rate Respiratory/Chest: chest wall non-tender Abdomen: non tender Silvio Reese MD Jan 07, 2019 08:19
[2019-01-07] MEDS ORDERED: TAMIFLU75 MG ORAL (08:23)
[2019-01-07] MEDS: Oseltamivir 75mg cap ORAL SCH (08:56)
[2019-01-07] MEDS: Bactrim-DS 1 tab ORAL SCH (08:56)
--- NOTE | 2019-01-07 12:39 | NUR ---
NURSE NOTES: patient discharged to friend home with stable condition. aox4, no respiratory distress noted. no c/o pain at this time. discharge packet provided. checked and counted belonging with patient. obtained signs. removed IV and ID band. given TAB card and new prescription. escorted patient to the first floor.
--- NOTE | 2019-01-07 22:39 | General Progress Note ---
Assessment/Plan Assessment/Plan GI: Plan Problems: (1) Acute renal failure (2) Nausea vomiting and diarrhea - improved (3) Dehydration (4) Anemia - OB (-) (5) Electrolyte imbalance (6) Influenza Plans Antibiotics per ID bowel regimen ppi fu labs Outpatient screening colonoscopy - advised to f/u Subjective Allergies: Coded Allergies: PENICILLINS (Verified Allergy, Unknown, 01/04/19) Subjective Feels much better no N/V tolerating PO Objective Last 24 Hour Vital Signs Date Time Temp Pulse Resp B/P (MAP) Pulse Ox O2 Delivery O2 Flow Rate FiO2 01/07/19 09:00 Room Air 01/07/19 08:00 97.6 72 17 98/61 (73) 96 01/07/19 04:00 97.4 72 16 112/70 (84) 96 Intake and Output 01/06/19 01/07/19 18:59 06:59 Intake Total 580 ml 600 ml Output Total 750 ml Balance -170 ml 600 ml Intake Oral 480 ml 600 ml IV Total 100 ml Output Urine Total 750 ml # Voids 3 Laboratory Tests 01/07/19 05:20: White Blood Count 4.2L, Red Blood Count 3.82L, Hemoglobin 11.6L, Hematocrit 34.8L, Mean Corpuscular Volume 91, Mean Corpuscular Hemoglobin 30.4, Mean Corpuscular Hemoglobin Concent 33.3, Red Cell Distribution Width 11.6, Platelet Count 112L, Mean Platelet Volume 8.3, Neutrophils (%) (Auto) 53.8, Lymphocytes ( %) (Auto) 31.7, Monocytes (%) (Auto) 12.7H, Eosinophils (%) (Auto) 1.0, Basophils (%) (Auto) 0.8, Sodium Level 138, Potassium Level 4.9, Chloride Level 103, Carbon Dioxide Level 26, Anion Gap 9, Blood Urea Nitrogen 25H, Creatinine 1.5H, Estimat Glomerular Filtration Rate 49.3, Glucose Level 91, Calcium Level 8.7 Height (Feet): 6 Height (Inches): 3.00 Weight (Pounds): 175 Objective WDWN NCAT supple CTA RRR abd soft ND no edema nonfocal Mikey Scanlon MD Jan 07, 2019 22:39
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
--- NOTE | 2019-01-08 11:54 | NUR ---
*-* INSURANCE *--* ALL CLINICALS,REVIEWS AND INTERQUAL FAXED TO: [employer] ALO:MAHAD P:[phone] F:[phone]
== END 2019-01-07 12:30 | disposition home or self-care (01) | DRG 469 ==
LOC: EDBD 16:28 → EMR 17:00 → 3E 18:40 → EDBEDREQ 18:59 → 3E 01-05 09:41 → 4E 01-05 15:18
DX: N17.9 Acute kidney failure, unspecified (principal); A41.9 Sepsis, unspecified organism; E87.5 Hyperkalemia; J44.1 Chronic obstructive pulmonary disease with (acute) exacerbation; J11.1 Influenza due to unidentified influenza virus with other respiratory manifestations; L03.114 Cellulitis of left upper limb; T23.462A Corrosion of unspecified degree of back of left hand, initial encounter; Z59.0 Homelessness; D64.9 Anemia, unspecified; E86.0 Dehydration; F15.10 Other stimulant abuse, uncomplicated; Z88.0 Allergy status to penicillin; Z87.891 Personal history of nicotine dependence; T65.91XA Toxic effect of unspecified substance, accidental (unintentional), initial encounter; Y92.9 Unspecified place or not applicable
CPT/HCPCS: 36415; 71045; 80048; 80053; 80307; 80329; 81003; 82270; 82378; 82550; 82570; 82607; 82728; 82746; 83540; 83550; 83605; 83690; 83735; 83880; 83935; 84100; 84300; 84439; 84443; 84484; 85025; 85044; 85610; 85730; 86710; 87040; 87081; 87324; 93005; 94640; 94664; 96361; 96374; 99285; J2405

== ENCOUNTER 2019-04-28 20:56 | Emergency (ER) | payer MEDICAID ==
[~2019-04-28] VITALS: Ht 188 cm; Wt 80.7 kg
[~2019-04-28 20:56] MED LIST: BACTRIM DS TAB1 EAC1 ORAL; IBUPROFEN600 MG ORAL; PROVENTIL HFA6.7 G1 IH; TAMIFLU75 MG ORAL
[2019-04-28 21:15] VITALS: BP 111/52
[2019-04-28] MEDS ORDERED: Tetracaine 0.5% Opth 4ml Soln ONE (21:28)
[2019-04-28] MEDS ORDERED: Tetracaine 0.5% Opth 4ml Soln RIGHT EYE ONE (21:30)
[2019-04-28] MEDS ORDERED: POLYTRIM OP SOL10 ML OPHTHALM (21:38)
--- NOTE | 2019-04-28 21:38 | Emergency Room Report ---
History of Present Illness General Chief Complaint: Eye Problems Source: Patient Present Illness HPI This is a 54-year-old male who presents with right eye pain. He woke up with it. He said is very painful and tearing. No discharge. Pain is 10 out of 10. Worse with lights. Worse with [id number] eyedrops. Denies any fever chills but denies any nausea or vomiting. Denies any trauma. Was not welding, working on cars or any construction project. Allergies: Coded Allergies: PENICILLINS (Verified Allergy, Unknown, 01/04/19) Patient History Past Medical History: see triage record, old chart reviewed Past Surgical History: none Pertinent Family History: none Social History: Denies: smoking Immunizations: other Reviewed Nursing Documentation: PMH: Agreed; PSxH: Agreed Nursing Documentation-PMH Hx Cardiac Problems: No Hx COPD: Yes - COPD exacerbation Hx Cancer: No Hx Gastrointestinal Problems: No Hx Neurological Problems: No Review of Systems Eye: Reports: eye pain, tearing; Denies: blurred vision ENT: Denies: ear pain, nose congestion, throat swelling Respiratory: Denies: cough, shortness of breath Cardiovascular: Denies: chest pain, palpitations Gastrointestinal: Denies: abdominal pain, diarrhea, nausea, vomiting Musculoskeletal: Denies: back pain, joint pain Skin: Denies: rash Neurological: Denies: headache, numbness Endocrine: Denies: increased thirst, increased urine Hematologic/Lymphatic: Denies: easy bruising All Other Systems: negative except mentioned in HPI Physical Exam Vital Signs Date Time Temp Pulse Resp B/P (MAP) Pulse Ox O2 Delivery O2 Flow Rate FiO2 04/28/19 21:08 98.2 93 18 111/52 (71) 99 Room Air Vitals normal Sp02 EP Interpretation: reviewed, normal General Appearance: well appearing, no apparent distress, alert Head: normocephalic, atraumatic Eyes: right eye other - Right eye with conjunctiva and sclera. corneal abrasion. no FB. neg Gely's; bilateral eye PERRL, bilateral eye EOMI ENT: hearing grossly normal, normal pharynx Neck: full range of motion, supple, no meningismus Respiratory: chest non-tender, lungs clear, normal breath sounds Cardiovascular #1: regular rate, rhythm, no murmur Gastrointestinal: normal bowel sounds, non tender, no mass, no organomegaly, no bruit, non-distended Musculoskeletal: back normal, gait/station normal, normal range of motion Psychiatric: mood/affect normal Skin: warm/dry Medical Decision Making Diagnostic Impression: Primary Impression: Corneal abrasion Qualified Codes: S05.01XA - Injury of conjunctiva and corneal abrasion without foreign body, right eye, initial encounter ER Course Patient presents with right eye pain and redness. He has a corneal abrasion. Better after tetracaine eyedrop. No foreign body. Will discharge home with antibiotic drops. Last Vital Signs Date Time Temp Pulse Resp B/P (MAP) Pulse Ox O2 Delivery O2 Flow Rate FiO2 04/28/19 21:15 98.2 83 18 111/52 99 Room Air Status: improved Disposition: HOME, SELF-CARE Condition: Stable Scripts Polymyxin/Trimethoprim (Polytrim Eye Drops) 10 Ml Drops 2 DROP OPHTHALM THREE TIMES A DAY, #1 EA Instill in affected eye for 7 days Prov: Darshan Leon MD 04/28/19 Additional Instructions: Wear eye as needed for pain. Follow-up with an eye doctor within a couple days for recheck. Return if worse. Darshan Leon MD Apr 28, 2019 21:38
[2019-04-28 21:48] VITALS: BP 120/62
== END 2019-04-28 21:45 | disposition home or self-care (01) ==
LOC: EMR 21:30
DX: S05.01XA Injury of conjunctiva and corneal abrasion without foreign body, right eye, initial encounter (principal); Z88.0 Allergy status to penicillin; J44.9 Chronic obstructive pulmonary disease, unspecified; X58.XXXA Exposure to other specified factors, initial encounter; Y92.9 Unspecified place or not applicable
CPT/HCPCS: 99282

== ENCOUNTER 2020-01-14 11:13 | Emergency (ER) | payer MEDICAID ==
[~2020-01-14] VITALS: Ht 188 cm; Wt 77.1 kg
[~2020-01-14 11:13] MED LIST changes: +POLYTRIM OP SOL10 ML OPHTHALM
[2020-01-14 11:37] VITALS: BP 121/77
--- NOTE | 2020-01-14 11:40 | Emergency Room Report ---
History of Present Illness General Chief Complaint: Abdominal Pain Source: Patient Present Illness HPI 54-year-old male presented from the street for flulike symptoms. He has had nausea, vomiting, diarrhea cough body aches and headache for the past 3 to 4 days. She denies sick contacts or recent travel. No fevers. Abdominal pain is cramping in nature about 8 out of 10. No shortness of breath. Denies any past medical history. Allergies: Coded Allergies: PENICILLINS (Verified Allergy, Unknown, 01/04/19) Patient History Past Medical History: see triage record Reviewed Nursing Documentation: PMH: Agreed; PSxH: Agreed Nursing Documentation-PMH Past Medical History: No Stated History Hx Cardiac Problems: No Hx COPD: Yes - COPD exacerbation Hx Cancer: No Hx Gastrointestinal Problems: No Hx Neurological Problems: No Review of Systems All Other Systems: negative except mentioned in HPI Physical Exam Vital Signs Date Time Temp Pulse Resp B/P (MAP) Pulse Ox O2 Delivery O2 Flow Rate FiO2 01/14/20 11:17 97.5 85 19 137/84 (101) 98 Room Air Sp02 EP Interpretation: reviewed, normal General Appearance: well appearing, no apparent distress Head: normocephalic, atraumatic Eyes: bilateral eye PERRL, bilateral eye EOMI ENT: hearing grossly normal, moist mucus membranes Neck: full range of motion, supple Respiratory: lungs clear, normal breath sounds, no rhonchi, no respiratory distress, no retraction, no wheezing Cardiovascular #1: normal peripheral pulses, regular rate, rhythm, no murmur Gastrointestinal: non tender, soft, non-distended, no guarding Neurologic: alert, oriented x3, no focal defects Skin: normal color, warm/dry Medical Decision Making Diagnostic Impression: Primary Impression: Viral syndrome Additional Impression: Transaminitis ER Course Differential diagnosis included but not limited to viral syndrome, dehydration, less likely surgical abdominal disease. His vital signs were stable on arrival. Abdomen nontender to palpation. Alert and oriented in no acute distress without active vomiting. On laboratory studies patient had mild transaminitis however he is an active drinker. T bili was normal. He had no right upper quadrant pain or tenderness. Patient was able to eat multiple sandwiches in the ER. Low suspicion for cholecystitis at this time. After IV fluids and Toradol patient felt improved. Denied complaints. Will discharge with symptomatic treatment and return precautions. She was agreeable with the plan. Laboratory Tests Test 01/14/20 11:45 White Blood Count 12.1 K/UL (4.8-10.8) H Red Blood Count 4.15 M/UL (4.70-6.10) L Hemoglobin 13.0 G/DL (14.2-18.0) L Hematocrit 37.4 % (42.0-52.0) L Mean Corpuscular Volume 90 FL (80-99) Mean Corpuscular Hemoglobin 31.3 PG (27.0-31.0) H Mean Corpuscular Hemoglobin Concent 34.8 G/DL (32.0-36.0) Red Cell Distribution Width 11.9 % (11.6-14.8) Platelet Count 89 K/UL (150-450) L Mean Platelet Volume 10.3 FL (6.5-10.1) H Neutrophils (%) (Auto) % (45.0-75.0) Lymphocytes (%) (Auto) % (20.0-45.0) Monocytes (%) (Auto) % (1.0-10.0) Eosinophils (%) (Auto) % (0.0-3.0) Basophils (%) (Auto) % (0.0-2.0) Differential Total Cells Counted 100 Neutrophils % (Manual) 64 % (45-75) Lymphocytes % (Manual) 21 % (20-45) Monocytes % (Manual) 14 % (1-10) H Eosinophils % (Manual) 0 % (0-3) Basophils % (Manual) 0 % (0-2) Band Neutrophils 1 % (0-8) Platelet Estimate Decreased L Platelet Morphology Normal Sodium Level 142 MMOL/L (136-145) Potassium Level 5.1 MMOL/L (3.5-5.1) Chloride Level 107 MMOL/L (98-107) Carbon Dioxide Level 28 MMOL/L (21-32) Anion Gap 7 mmol/L (5-15) Blood Urea Nitrogen 23 mg/dL (7-18) H Creatinine 1.4 MG/DL (0.55-1.30) H Estimate Glomerular Filtration Rate 53.2 mL/min (>60) Glucose Level 90 MG/DL (74-106) Calcium Level 8.8 MG/DL (8.5-10.1) Total Bilirubin 0.6 MG/DL (0.2-1.0) Aspartate Amino Transferase (AST) 135 U/L (15-37) H Alanine Aminotransferase (ALT) 220 U/L (12-78) H Alkaline Phosphatase 145 U/L (46-116) H Total Protein 7.0 G/DL (6.4-8.2) Albumin 3.0 G/DL (3.4-5.0) L Globulin 4.0 g/dL Albumin/Globulin Ratio 0.8 (1.0-2.7) L Lipase 100 U/L (73-393) Last Vital Signs Date Time Temp Pulse Resp B/P (MAP) Pulse Ox O2 Delivery O2 Flow Rate FiO2 01/14/20 11:17 97.5 85 19 137/84 (101) 98 Room Air Status: improved Disposition: HOME, SELF-CARE Condition: Stable Scripts Loperamide Hcl (LOPERAMIDE) 2 Mg Capsule 2 MG PO Q8HR PRN for Diarrhea, #10 CAP Prov: Herson Chaney M.D. 01/14/20 Ibuprofen* (MOTRIN*) 600 Mg Tablet 600 MG ORAL Q8H PRN for For Pain, #30 TAB 0 Refills Prov: Herson Chaney M.D. 01/14/20 Ondansetron (Zofran) 4 Mg Tablet 4 MG ORAL Q8H PRN for Nausea & Vomiting, #10 TAB 0 Refills Prov: Herson Chaney M.D. 01/14/20 Herson Chaney M.D. Jan 14, 2020 11:40
--- NOTE | 2020-01-14 11:42 | NUR ---
ED Nurse Note: Patient having several days of nausea, vomiting and diarrhea. patient feels weak but has a steady gait and awake of surrounding. placed on monitor and assessed by Er phycisian at the bedside.
[2020-01-14] MEDS ORDERED: Ketorolac 30mg Inj IV ONE (11:45)
[2020-01-14 12:06] LABS: HEMATOCRIT 37.4 % (42.0-52.0); MEAN CORPUSCULAR VOLUME 90 FL (80-99); PLATELET COUNT 89 K/UL (150-450); RED BLOOD COUNT 4.15 M/UL (4.70-6.10); RED CELL DISTRIBUTION WIDTH 11.9 % (11.6-14.8); WHITE BLOOD COUNT 12.1 K/UL (4.8-10.8)
[2020-01-14 12:07] VITALS: BP 119/82
--- NOTE | 2020-01-14 12:15 | NUR ---
HAND-OFF: Report given to Malik echeverria.
--- NOTE | 2020-01-14 12:16 | NUR ---
ED Nurse Note: Received patient in bed. Dr. Chaney ok for the patient to eat, provided sandwiches and water to the patient, patient is tolerating the food at this time. alert awake x4.
[2020-01-14 12:50] LABS: ANION GAP 7 mmol/L (5-15); BLOOD UREA NITROGEN 23 mg/dL (7-18); CARBON DIOXIDE 28 MMOL/L (21-32); CHLORIDE 107 MMOL/L (98-107); CREATININE 1.4 MG/DL (0.55-1.30); POTASSIUM 5.1 MMOL/L (3.5-5.1); SODIUM 142 MMOL/L (136-145)
[2020-01-14 12:54] LABS: ALANINE AMINOTRANSFERASE 220 U/L (12-78); ALBUMIN/GLOBULIN RATIO 0.8 (1.0-2.7); ALKALINE PHOSPHATASE 145 U/L (46-116); ASPARTATE AMINO TRANSFERASE 135 U/L (15-37); BILIRUBIN,TOTAL 0.6 MG/DL (0.2-1.0)
[2020-01-14 13:07] LABS: CALCIUM 8.8 MG/DL (8.5-10.1)
[2020-01-14 14:00] VITALS: BP 125/85
[2020-01-14 14:11] VITALS: BP 125/85
[2020-01-14] MEDS ORDERED: IBUPROFEN600 MG ORAL (14:11)
[2020-01-14] MEDS ORDERED: ZOFRAN4 MG ORAL (14:11)
[2020-01-14] MEDS ORDERED: LOPERAMIDE2 MG PO (14:11)
--- NOTE | 2020-01-14 14:11 | NUR ---
Homeless Discharge: Patient is being discharged from medical care by Dr. Chaney. Awake, alert and oriented x3. After care instructions, including referral to community resources were given. Patient verbalized understanding of After care instructions; at this time patient does not request medications, equipment or placement. patient wishes to go to his pharmacy to dispense medication. RN instructed that patient take medication as prescribed, patient verbalized understanding. Patient signed patient consent in the medical record for patient destination upon discharge. All medical devices such as IV and ID band were removed. Patient ambulated out with all personal belongings with steady gait. sanwiches and water provided to the patient. patient wears adequate clothing for the weather. patient declines to state where he is going to and declines the need for transportation modeler at this time.
== END 2020-01-14 14:11 | disposition home or self-care (01) ==
LOC: EMR 12:10
DX: B34.9 Viral infection, unspecified (principal); R74.0 Nonspecific elevation of levels of transaminase and lactic acid dehydrogenase [LDH]; J44.9 Chronic obstructive pulmonary disease, unspecified; Z88.0 Allergy status to penicillin
CPT/HCPCS: 36415; 80053; 83690; 85007; 85025; 96361; 96374; J1885; J7030; Z7502; 99284

== ENCOUNTER 2020-02-05 12:48 | Emergency (ER) | payer MEDICAID ==
[~2020-02-05] VITALS: Ht 188 cm; Wt 77.1 kg
--- NOTE | 2020-02-05 12:45 | NUR ---
ED Nurse Note: Pt walked in to ED for coughing, bodyaches, chills and states he has diarrhea x 2 days. denies any recent travel. pt reports having fatigue. pt alert x4.
[2020-02-05 12:48] VITALS: BP 95/58
[~2020-02-05 12:48] MED LIST changes: +LOPERAMIDE2 MG PO; +ZOFRAN4 MG ORAL
[2020-02-05] MEDS ORDERED: Dicyclomine HCl 10mg/5ml oral soln ORAL ONE (13:00)
--- NOTE | 2020-02-05 13:00 | NUR ---
ED Nurse Note: cxr being taken at this time.
--- NOTE | 2020-02-05 13:41 | NUR ---
ED Nurse Note: pt unable to provide urine at this time. pt aware urine sample is needed.
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
[2020-02-05 13:59] LABS: BASOPHILS % (AUTO) 1.2 % (0.0-2.0); EOSINOPHILS % (AUTO) 0.5 % (0.0-3.0); HEMATOCRIT 41.3 % (42.0-52.0); HEMOGLOBIN 14.1 G/DL (14.2-18.0); LYMPHOCYTES % (AUTO) 9.1 % (20.0-45.0); MEAN CORPUSCULAR VOLUME 90 FL (80-99); MONOCYTES % (AUTO) 9.5 % (1.0-10.0); NEUTROPHILS % (AUTO) 79.7 % (45.0-75.0); PLATELET COUNT 116 K/UL (150-450); RED BLOOD COUNT 4.59 M/UL (4.70-6.10); RED CELL DISTRIBUTION WIDTH 12.1 % (11.6-14.8); WHITE BLOOD COUNT 6.6 K/UL (4.8-10.8)
[2020-02-05 14:02] LABS: ANION GAP 11 mmol/L (5-15); BLOOD UREA NITROGEN 27 mg/dL (7-18); CALCIUM 8.4 MG/DL (8.5-10.1); CARBON DIOXIDE 22 MMOL/L (21-32); CHLORIDE 105 MMOL/L (98-107); CREATININE 1.3 MG/DL (0.55-1.30); POTASSIUM 4.4 MMOL/L (3.5-5.1); SODIUM 138 MMOL/L (136-145)
[2020-02-05 14:08] LABS: ALANINE AMINOTRANSFERASE 23 U/L (12-78); ALBUMIN 3.8 G/DL (3.4-5.0); ALBUMIN/GLOBULIN RATIO 0.9 (1.0-2.7); ALKALINE PHOSPHATASE 63 U/L (46-116); ASPARTATE AMINO TRANSFERASE 25 U/L (15-37); BILIRUBIN,TOTAL 0.3 MG/DL (0.2-1.0)
[2020-02-05 14:11] VITALS: BP 112/83
--- NOTE | 2020-02-05 14:18 | NUR ---
ED Nurse Note: pt in bed resting. VSS as documented
[2020-02-05] MEDS ORDERED: ZOFRAN4 M1 ORAL (14:57)
[2020-02-05] MEDS ORDERED: DICYCLOMINE HCL10 MG ORAL (14:57)
[2020-02-05] MEDS ORDERED: Dicyclomine 10mg Cap ORAL ONE (15:00)
[2020-02-05] MEDS ORDERED: Dicyclomine HCl 10mg/5ml oral soln ONE (15:01)
--- NOTE | 2020-02-05 15:02 | Emergency Room Report ---
History of Present Illness General Chief Complaint: Flu Like Symptoms Source: Medical Record Present Illness HPI 54-year-old male, homeless, with no significant past medical history here complaining of 4 days of multiple bouts of nonbloody diarrhea. Complains of fever and chills however denies cough and congestion. Denies shortness of breath sore throat[place] [address] [place] reports that he normally stays abandoned house. Denies recent travel. Denies coming in contact with person who has a confirmed case of coronavirus. Blood pressure is low upon arrival and appears to be 78/55. Patient appears dehydrated. Denies nausea vomiting. Has not taken medication for symptom relief. Reports that he smokes marijuana however denies other drug use. Denies tobacco smoking alcohol intake Allergies: Coded Allergies: PENICILLINS (Verified Allergy, Unknown, 01/04/19) COVID-19 Screening Contact w/high risk pt: No Recent Travel to affected area: No Experienced COVID-19 symptoms?: Yes COVID-19 symptoms experienced: Cough, Flu-Like Symptoms Patient History Past Medical History: see triage record Past Surgical History: none Pertinent Family History: none Immunizations: UTD Reviewed Nursing Documentation: PMH: Agreed; PSxH: Agreed Nursing Documentation-PMH Past Medical History: No History, Except For Hx Cardiac Problems: No Hx COPD: Yes - COPD exacerbation Hx Cancer: No Hx Gastrointestinal Problems: No Hx Neurological Problems: No Review of Systems All Other Systems: negative except mentioned in HPI Physical Exam Vital Signs Date Time Temp Pulse Resp B/P (MAP) Pulse Ox O2 Delivery O2 Flow Rate FiO2 02/05/20 12:29 97.9 109 20 78/55 (63) 98 Room Air Sp02 EP Interpretation: reviewed, abnormal - Blood pressure 78/55 General Appearance: no apparent distress, alert, GCS 15, non-toxic Head: normocephalic, atraumatic Eyes: bilateral eye normal inspection, bilateral eye PERRL ENT: hearing grossly normal, normal pharynx, no angioedema, normal voice Neck: full range of motion, supple/symm/no masses Respiratory: chest non-tender, lungs clear, normal breath sounds, no rhonchi, no wheezing, speaking full sentences Cardiovascular #1: regular rate, rhythm, no edema, no murmur Gastrointestinal: non tender, soft, no mass Rectal: deferred Genitourinary: no CVA tenderness Musculoskeletal: back normal Psychiatric: judgement/insight normal Skin: normal color Lymphatic: no adenopathy Medical Decision Making PA Attestation All my diagnosis and treatment plans were reviewed ad discussed with my supervising physician Dr. Patel Diagnostic Impression: Primary Impression: Acute diarrhea ER Course 54-year-old male, homeless, with no significant past medical history here complaining of 4 days of multiple bouts of nonbloody diarrhea. Complains of fever and chills however denies cough and congestion. Denies shortness of breath sore throat. [place] [address] [place] reports that he normally stays abandoned house. Denies recent travel. Denies coming in contact with person who has a confirmed case of coronavirus. Blood pressure is low upon arrival and appears to be 78/55. Patient appears dehydrated. Denies nausea vomiting. Has not taken medication for symptom relief. Reports that he smokes marijuana however denies other drug use. Denies tobacco smoking alcohol intake Ddx considered but are not limited to: Coronavirus, strep pharyngitis, URI, tonsillitis, peritonsillar abscess, influneza, acute diarrhea, gastroenteritis Vital signs: are WNL, pt. is afebrile H&PE are most consistent with: Acute diarrhea most likely secondary to coronavirus ORDERS: CBC, CMP, UA, tox screen which patient could not give any urine at this time, influenza swab, coronavirus swab, dicyclomine, Zofran ED INTERVENTIONS: NS bolus, dicyclomine DISCHARGE: At this time pt. is stable for d/c to home. Will provide printed patient care instructions, and any necessary prescriptions. Care plan and follow up instructions have been discussed with the patient prior to discharge. Take medication as directed, follow-up with your primary doctor, you need to stay home for self quarantine due to Covid 19 precautions for 14 days. Brat diet will be advised Last Vital Signs Date Time Temp Pulse Resp B/P (MAP) Pulse Ox O2 Delivery O2 Flow Rate FiO2 02/05/20 14:11 98.0 95 16 112/83 98 Room Air Disposition: HOME, SELF-CARE Condition: Stable Scripts Ondansetron (Zofran) 4 Mg Tablet 4 MG ORAL Q6H PRN for Nausea & Vomiting, #20 TAB Prov: Jos Aaron 02/05/20 Dicyclomine Hcl* (DICYCLOMINE HCL*) 10 Mg Capsule 10 MG ORAL QID, #20 CAP Prov: Jos Aaron 02/05/20 Referrals: NON PHYSICIAN (PCP) Patient Instructions: Diarrhea, Adult, [id number] Additional Instructions: Take medication as directed, follow-up with your primary doctor, you need to stay home for self quarantine due to Covid 19 precautions for 14 days Jos Aaron Feb 05, 2020 15:02
--- NOTE | 2020-02-05 15:22 | NUR ---
ER DISCHARGE NOTE: Patient is cleared to be discharged per ERMD, pt is aox4, on room air, with stable vital signs. no uirine was collected, ERNP aware. pt was given dc and prescription instructions, pt was able to verbalize understanding, pt id band and iv site removed without complications. pt will wait in the room until prescription is brought to pt.
[2020-02-05 15:56] VITALS: BP 118/79
--- NOTE | 2020-02-05 15:56 | NUR ---
ED Nurse Note: prescription given to pt. pt walked out of ED with steady gait wearing mask. took all belongings with him.
== END 2020-02-05 15:56 | disposition home or self-care (01) ==
LOC: EDBD 12:48 → EMR 13:09
DX: R19.7 Diarrhea, unspecified (principal); J44.9 Chronic obstructive pulmonary disease, unspecified; Z88.0 Allergy status to penicillin
CPT/HCPCS: 36415; 71045; 80053; 85025; 86140; 86710; 87635; 96360; J7030; Z7502; 99284